=== PATIENT | male | born 1955 | race Caucasian/White ===

== ENCOUNTER 2017-07-24 13:41 | Emergency (ER) | payer MEDICAID, SELFPAY ==
[~2017-07-24] VITALS: Ht 170.2 cm; Wt 54.1 kg
[2017-07-24 13:44] VITALS: BP 132/77
== END 2017-07-24 15:19 | disposition home or self-care (01) ==
LOC: ED 14:52
DX: S62.524A Nondisplaced fracture of distal phalanx of right thumb, initial encounter for closed fracture (principal); W01.0XXA Fall on same level from slipping, tripping and stumbling without subsequent striking against object, initial encounter; Y93.89 Activity, other specified; Y92.89 Other specified places as the place of occurrence of the external cause; Y99.8 Other external cause status
CPT/HCPCS: 29125; 99284

== ENCOUNTER 2019-09-23 12:11 | Emergency (ER) | payer SELFPAY ==
[~2019-09-23] VITALS: Ht 170.2 cm; Wt 54.6 kg
[2019-09-23 12:15] VITALS: BP 118/81
== END 2019-09-23 13:07 | disposition home or self-care (01) ==
LOC: ED 12:58
DX: Z00.00 Encounter for general adult medical examination without abnormal findings (principal)
CPT/HCPCS: 99281

== ENCOUNTER 2019-11-04 15:40 | Emergency (ER) | payer OTHER ==
[~2019-11-04] VITALS: Ht 170.2 cm; Wt 55.1 kg
--- NOTE | 2019-11-04 15:53 | NUR ---
Pt is tachycardic because he just rode his bike here.
--- NOTE | 2019-11-04 16:10 | NUR ---
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
--- NOTE | 2019-11-04 16:25 | NUR ---
PT CAME IN CO OF ABD PAIN ESPEACIALLY WHEN HAS HAS A BM. PT SAYS "THE BM IS LIKE MUCOUS. I LOOKED UP THE SYMTPOMS ONLINE AND I THINK I HAVE COLON CANCER". PT ALSO STATES HE HAS A HISTORY COLITIS WELL AND INGUINAL HERNIA. POOR HISTORIAN. PT IS RESTING IN [facility]. PROVIDED A UA. CONNECTED TO MONITORING EQUIPMENT.
[2019-11-04 16:58] LABS: BASOPHILS # (AUTO) 0.11 x10^3/uL (0-0.1); BASOPHILS % (AUTO) 2 % (0-1); EOSINOPHILS # (AUTO) 0.04 x10^3/uL (0-0.4); EOSINOPHILS % (AUTO) 1 % (1-7); LYMPHOCYTES # (AUTO) 2.06 x10^3/uL (1-3.4); LYMPHOCYTES % (AUTO) 34 % (22-44); MD NO; MEAN CORPUSCULAR HEMOGLOBIN 34.3 pg (27.5-34.5); MEAN CORPUSCULAR HGB CONC 33.6 g/dL (33.2-36.2); MEAN CORPUSCULAR VOLUME 102.1 fL (81-97); MEAN PLATELET VOLUME 7.3 fL (7.4-10.4); MONOCYTES # (AUTO) 0.33 x10^3/uL (0.2-0.8); MONOCYTES % (AUTO) 6 % (2-9); NEUTROPHILS % (AUTO) 58 % (42-75); PLATELET COUNT 207 x10^3/uL (130-400); RED BLOOD COUNT 3.84 x10^6/uL (4.38-5.82); RED CELL DISTRIBUTION WIDTH 13.4 % (9.4-14.8)
[2019-11-04 17:10] LABS: ALANINE AMINOTRANSFERASE 56 U/L (12-78); ALBUMIN 3.9 g/dL (3.4-5.0); ANION GAP 7 mmol/L (5-15); CALCIUM 8.9 mg/dL (8.5-10.1); CHLORIDE 108 mmol/L (98-107); CREATININE 0.65 mg/dL (0.7-1.3)
[2019-11-04 17:16] LABS: MICROSCOPIC AUTO
[2019-11-04 17:18] LABS: ALKALINE PHOSPHATASE 73 U/L (45-117); BILIRUBIN,TOTAL 0.3 mg/dL (0.2-1.0); TOTAL PROTEIN 7.3 g/dL (6.4-8.2)
[2019-11-04 18:09] VITALS: BP 111/89
--- NOTE | 2019-11-04 18:35 | NUR ---
D/C INSTRUCTIONS & F/U APPT'S RV'WD WITH PT, HE VERBALIZES UNDERSTANDING. AMBULATED OUT OF ED WITH WITHOUT DIFFICULTY.
== END 2019-11-04 18:36 | disposition home or self-care (01) ==
LOC: ED 17:29
DX: R10.84 Generalized abdominal pain (principal); R11.2 Nausea with vomiting, unspecified; R00.0 Tachycardia, unspecified; Z85.038 Personal history of other malignant neoplasm of large intestine
CPT/HCPCS: 36415; 80053; 81001; 83690; 85025; 93005; 99284

== ENCOUNTER 2019-11-22 04:58 | Emergency (ER) | payer SELFPAY ==
[~2019-11-22] VITALS: Ht 170.2 cm; Wt 70.0 kg
--- NOTE | 2019-11-22 06:00 | NUR ---
Pt report from Nuzhat patrick.
--- NOTE | 2019-11-22 06:10 | NUR ---
Pt is a+ox4 and neurologically intact. Awaiting further assessment.
[2019-11-22 06:11] LABS: ANION GAP 11 mmol/L (5-15); CALCIUM 8.4 mg/dL (8.5-10.1); CHLORIDE 98 mmol/L (98-107)
[2019-11-22 06:14] LABS: ALANINE AMINOTRANSFERASE 190 U/L (12-78); ALKALINE PHOSPHATASE 74 U/L (45-117); BILIRUBIN,TOTAL 1.4 mg/dL (0.2-1.0); CREATININE 0.71 mg/dL (0.7-1.3); TOTAL PROTEIN 7.3 g/dL (6.4-8.2)
[2019-11-22 06:16] LABS: BASOPHILS # (AUTO) 0.03 x10^3/uL (0-0.1); BASOPHILS % (AUTO) 1 % (0-1); EOSINOPHILS # (AUTO) 0.02 x10^3/uL (0-0.4); EOSINOPHILS % (AUTO) 0 % (1-7); LYMPHOCYTES # (AUTO) 1.28 x10^3/uL (1-3.4); LYMPHOCYTES % (AUTO) 21 % (22-44); MD NO; MEAN CORPUSCULAR HEMOGLOBIN 33.9 pg (27.5-34.5); MEAN CORPUSCULAR VOLUME 102.7 fL (81-97); MEAN PLATELET VOLUME 7.6 fL (7.4-10.4); MONOCYTES # (AUTO) 0.38 x10^3/uL (0.2-0.8); MONOCYTES % (AUTO) 6 % (2-9); NEUTROPHILS # (AUTO) 4.45 x10^3/uL (1.8-6.8); NEUTROPHILS % (AUTO) 72 % (42-75); PLATELET COUNT 134 x10^3/uL (130-400); RED BLOOD COUNT 3.99 x10^6/uL (4.38-5.82); RED CELL DISTRIBUTION WIDTH 13.6 % (9.4-14.8)
[2019-11-22 06:26] LABS: SALICYLATE LEVEL < 1.7 mg/dL (2.8-20.0)
--- NOTE | 2019-11-22 06:51 | NUR ---
SBAR RECEIVED FROM THIERNO RAMOS AT PATIENT BEDSIDE.
[2019-11-22 07:15] VITALS: BP 127/88
--- NOTE | 2019-11-22 07:24 | NUR ---
Patient and significant other given discharge instructions and they have confirmed that they understand the instructions, no questions, all patient belongings gathered by patient. IV removed with tip intact. Patient ambulatory with steady gait.
== END 2019-11-22 07:25 | disposition home or self-care (01) ==
LOC: ED 05:53
DX: R56.9 Unspecified convulsions (principal); F10.10 Alcohol abuse, uncomplicated; G93.89 Other specified disorders of brain; R94.31 Abnormal electrocardiogram [ECG] [EKG]; Y90.9 Presence of alcohol in blood, level not specified
CPT/HCPCS: 36415; 70450; 80053; 80307; 85025; 93005; 99285

== ENCOUNTER 2020-01-20 19:48 | Emergency (ER) | payer SELFPAY ==
[~2020-01-20] VITALS: Ht 170.2 cm; Wt 61.3 kg
[2020-01-20] MEDS ORDERED: MAGNESIUM SULFATE 1 GM, THIAMINE 100 MG, FOLIC ACID 1 MG, MVI ADULT 10 ML in SODIUM CHL... IV ONE (20:00)
[2020-01-20] MEDS ORDERED: LORazepam 2 MG/ML, 1ML IVPush ONE (20:00)
[2020-01-20] MEDS ORDERED: LORazepam 2 MG/ML, 1ML ONE (20:37)
[2020-01-20 20:39] LABS: BASOPHILS % (AUTO) 1 % (0-1); EOSINOPHILS % (AUTO) 1 % (1-7); LYMPHOCYTES % (AUTO) 32 % (22-44); MEAN CORPUSCULAR HEMOGLOBIN 34.3 pg (27.5-34.5); MEAN CORPUSCULAR HGB CONC 33.3 g/dL (33.2-36.2); MEAN PLATELET VOLUME 7.7 fL (7.4-10.4); MONOCYTES % (AUTO) 7 % (2-9); NEUTROPHILS % (AUTO) 60 % (42-75); PLATELET COUNT 201 x10^3/uL (130-400); RED BLOOD COUNT 4.17 x10^6/uL (4.38-5.82); RED CELL DISTRIBUTION WIDTH 14.4 % (9.4-14.8)
[2020-01-20 20:42] LABS: MD NO
[2020-01-20 20:44] LABS: ALANINE AMINOTRANSFERASE 129 U/L (12-78); ALBUMIN 4.1 g/dL (3.4-5.0); ANION GAP 13 mmol/L (5-15); CHLORIDE 101 mmol/L (98-107)
[2020-01-20 20:46] LABS: ALKALINE PHOSPHATASE 77 U/L (45-117); BILIRUBIN,TOTAL 0.7 mg/dL (0.2-1.0); CREATININE 0.64 mg/dL (0.7-1.3); TOTAL PROTEIN 7.6 g/dL (6.4-8.2)
--- NOTE | 2020-01-20 21:16 | NUR ---
EKG performed. ST
--- NOTE | 2020-01-20 21:25 | NUR ---
Pt O2 SAT on RA 90%-92%. Pt placed on 1L. O2 SAT 96%
[2020-01-20] MEDS ORDERED: POTASSIUM CHLORIDE 20 MEQ TAB.ER.PRT PO ONE (22:00)
[2020-01-20] MEDS ORDERED: THIAMINE 100MG TABLET ONE (22:15)
[2020-01-20] MEDS ORDERED: POTASSIUM CHLORIDE 20 MEQ TAB.ER.PRT ONE (22:16)
[2020-01-20] MEDS ORDERED: SODIUM CHLORIDE 0.9% 1,000ML IVBOLUS ONE (22:30)
[2020-01-20] MEDS ORDERED: THIAMINE 100MG TABLET PO ONE (22:30)
[2020-01-20 22:56] VITALS: BP 155/97
--- NOTE | 2020-01-20 22:56 | NUR ---
Assist RN: Patient ambulated to BR with no assistance; steady gait. No complaints.
--- NOTE | 2020-01-20 23:52 | NUR ---
Pt ambulatory. Steady gait. VS stable. Educated to get K+ recheck after taking prescribed potassium pills. Family member and pt verbalized understanding. Pt given resources on PCP and urgent cares for [place]. Registration to provide finacial aid information at discharge.
== END 2020-01-20 23:54 | disposition home or self-care (01) ==
LOC: ED 21:47
DX: F10.239 Alcohol dependence with withdrawal, unspecified (principal); R56.9 Unspecified convulsions; E87.6 Hypokalemia; R00.0 Tachycardia, unspecified; F17.210 Nicotine dependence, cigarettes, uncomplicated; Y90.9 Presence of alcohol in blood, level not specified
CPT/HCPCS: 36415; 80053; 80307; 85025; 93005; 96361; 96374; 99284; 99406; J2060; J7030